=== PATIENT | male | born 1940 | race Caucasian/White ===

== ENCOUNTER 2017-03-27 07:57 | Day surgery (SDC) | payer OTHER ==
[~2017-03-27 07:57] MED LIST: AMLODIPINE BESY10 MG PO; ANTIVERT25 MG PO; ASPIRIN325 MG PO; BAYER CHEWABLE81 MG PO; CALCITRIOL0.25 MCG PO; CHOLESTEROL MA600 MG PO; CO Q-10100 MG PO; COZAAR50 MG PO; CRESTOR5 MG PO; Cozaar PO; EFFIENT10 MG PO; EMS Nitrostat 0.4 mg SL; Ecotrin PO; Effient PO; FISH OIL 1,2001 EAC3 PO; FISH OIL 1,4001 EACH PO; Fish Oil PO; LOPRESSOR50 MG PO; LOSARTAN POTAS100 MG PO; Lopressor PO; METOPROLOL TART50 MG PO; NORVASC5 MG PO; PREDNISONE20 MG PO; PROAIR HFA8.5 GM IH; VITAMIN D3400 UNI1 PO; ZITHROMAX250 MG PO; ZOFRAN4 MG PO
[2017-03-27 09:58] LABS: MCH 29.3 PG (29.0-34.0); MCHC 33.4 G/DL (30.0-36.0); MCV 87.6 FL (86-99); PLATELET COUNT 101 K/uL (156-360); RBC DIS.WIDTH-CV 13.3 % (11.8-14.6); RBC DIS.WIDTH-SD 42.9 % (39-53); RED BLOOD COUNT 5.02 M/uL (4.00-5.50); WHITE BLOOD COUNT 6.2 K/uL (4.1-10.2)
[2017-03-27 11:38] LABS: ANION GAP 10 MEQ/L (2-14); CHLORIDE 105 MEQ/L (99-109); GFR ESTIMATE (CALCULATED) 29 mL/min/; GLUCOSE 111 mg/dL (70-99); POTASSIUM 4.9 MEQ/L (3.7-5.4); SAMPLE HEMOLYSIS CHECK 0; SAMPLE ICTERIC CHECK 0; SAMPLE LIPEMIA CHECK 0; SODIUM 139 MEQ/L (136-147); UREA NITROGEN (BUN) 54 mg/dL (9-23)
== END 2017-03-27 18:29 | disposition home or self-care (01) ==
LOC: CATH 07:57
PROVIDERS: Internal Medicine Interventional Cardiology
PROC: B2121ZZ Fluoroscopy of Single Coronary Artery Bypass Graft using Low Osmolar Contrast (ICD-10-PCS; principal; 2017-03-27)
PROC: 4A023N7 Measurement of Cardiac Sampling and Pressure, Left Heart, Percutaneous Approach (ICD-10-PCS; principal; 2017-03-27)
DX: I25.110 Atherosclerotic heart disease of native coronary artery with unstable angina pectoris (principal); I13.10 Hypertensive heart and chronic kidney disease without heart failure, with stage 1 through stage 4 chronic kidney disease, or unspecified chronic kidney disease; N18.1 Chronic kidney disease, stage 1; E78.2 Mixed hyperlipidemia; R00.1 Bradycardia, unspecified; Z95.1 Presence of aortocoronary bypass graft; Z95.5 Presence of coronary angioplasty implant and graft
CPT/HCPCS: 80048; 85027; 93005; C1769; C1887; J1644; J2250; J3010

== ENCOUNTER 2017-06-05 05:43 | Emergency (ER) | payer OTHER ==
[~2017-06-05] VITALS: Ht 177.8 cm; Wt 98.9 kg
[2017-06-05] MEDS ORDERED: FLEXERIL10 MG PO (06:53)
[2017-06-05] MEDS ORDERED: MEDROL DOSEPAK4 MG PO (06:53)
[2017-06-05] MEDS ORDERED: PERCOCET 5/31 TABLET PO (06:53)
[2017-06-05 08:00] VITALS: BP 181/86
== END 2017-06-05 08:01 | disposition home or self-care (01) ==
LOC: EME 05:43
DX: S39.012A Strain of muscle, fascia and tendon of lower back, initial encounter (principal); X50.1XXA Overexertion from prolonged static or awkward postures, initial encounter; Y92.71 Barn as the place of occurrence of the external cause; I10 Essential (primary) hypertension; E78.5 Hyperlipidemia, unspecified; Z95.1 Presence of aortocoronary bypass graft; Z79.82 Long term (current) use of aspirin
CPT/HCPCS: 72100; 93005; 99281; 99284